=== PATIENT | female | born 1990 | race African-American/Black ===

== ENCOUNTER 2016-10-30 16:14 | Emergency (ER) | payer OTHER ==
[~2016-10-30] VITALS: Ht 165.1 cm; Wt 87.3 kg
[2016-10-30 16:18] VITALS: BP 147/90; PULSE 64; RESP 18; TEMP 98.4; O2SAT 100
[2016-10-30] MEDS ORDERED: PRIL20CA9 PO (17:00)
--- NOTE | 2016-10-30 17:01 | PD ---
HPI Chief Complaint: Epigastric Pain Time Seen by Provider: 16:41 Travel History International Travel<30 days: No Contact w/Intl Traveler<30days: No Traveled to known affect area: No History of Present Illness HPI This 26-year-old female says that for the past week and a half years having stomach bloating. She gets some epigastric burning which radiates up towards her chest. She is on no medication. She has not noted any particular about food that makes the pain worse. She takes ibuprofen occasionally. She does not think but she is not sure. She has no history of ulcer disease. She has not had any abdominal surgery pain didn't seem to be worse when she was lying on her side the other day PFS Past Medical History Reproductive: Yes (PCOS) Influenza Vaccination: No ?: Unknown LMP: 09/30/16 Social History Alcohol Use: Yes (OCCAS) Tobacco Use: No Substance Use: No Allergies-Medications (Allergen,Severity, Reaction): Coded Allergies: No Known Allergies (Unverified , 10/30/16) Reported Meds & Prescriptions Reported Meds & Active Scripts Active No Active Prescriptions or Reported Medications Review of Systems General / Constitutional: No: Fever, Chills Eyes: No: Diploplia, Blurred Vision HENT: No: Headaches, Vertigo Cardiovascular: No: Chest Pain or Discomfort, Palpitations Respiratory: No: Cough, Shortness of Breath Gastrointestinal: No: Vomiting, Diarrhea Genitourinary: No: Urgency, Frequency Musculoskeletal: No: Myalgias, Arthralgias Skin: No Itching Neurologic: No: Focal Abnormalities Hematologic/Lymphatic: No: Easy Bruising Physical Exam Narrative GENERAL: Well-developed female SKIN: Warm and dry. HEAD: Atraumatic. Normocephalic. EYES: Pupils equal and round. No scleral icterus. No injection or drainage. ENT: No nasal bleeding or discharge. Mucous membranes pink and moist. NECK: Trachea midline. No JVD. CARDIOVASCULAR: Regular rate and rhythm. No murmur appreciated. RESPIRATORY: No accessory muscle use. Clear to auscultation. Breath sounds equal bilaterally. GASTROINTESTINAL: Abdomen soft, there is some mild epigastric tenderness without guarding or rigidity, nondistended. Hepatic and splenic margins not palpable. MUSCULOSKELETAL: No obvious deformities. No clubbing. No cyanosis. No edema. NEUROLOGICAL: Awake and alert. No obvious cranial nerve deficits. Motor grossly within normal limits. Normal speech. PSYCHIATRIC: Appropriate mood and affect; insight and judgment normal. Data Data Last Documented VS Vital Signs Date Time Temp Pulse Resp B/P Pulse Ox O2 Delivery O2 Flow Rate FiO2 10/30/16 16:18 98.4 64 18 147/90 100 Orders Ed Urine Pregnancytest Poc (10/30/16 16:49) MDM Medical Decision Making Medical Screen Exam Complete: Yes Emergency Medical Condition: Yes Medical Record Reviewed: Yes Differential Diagnosis Differential includes GERD, hiatal hernia, gastritis, cholelithiasis Narrative Course Exam is fairly benign. There is not a pattern to the pain is in the expected cholelithiasis. test will be checked. I think she needs to be on a proton pump inhibitor will also recommend that she not take ibuprofen Diagnosis Primary Impression: GERD (gastroesophageal reflux disease) Qualified Code: K21.9 - Gastroesophageal reflux disease, esophagitis presence not specified Additional Instructions: dont take any ibuprofen or other non steroidal inflammatory medication Scripts Omeprazole (Prilosec)20 Mg Cap20 Mg PO DAILY #30 CAP Ref 0 Prov:Catracho Adkins MD 10/30/16 Disposition: 01 DISCHARGE HOME Condition: Stable Catracho Adkins MD Oct 30, 2016 17:01
--- NOTE | 2016-10-31 18:43 | EKG ---
Date Performed: 10/30/2016 Time Performed: 16:29:54 PTAGE: 26 years EKG: Sinus bradycardia Normal ECG except for rate NO PREVIOUS TRACING DOCTOR: Mookie Hoover Interpretating Date/Time 10/31/2016 18:39:09
== END 2016-10-30 17:31 | disposition home or self-care (01) ==
LOC: PHED 16:14
DX: K21.9 Gastro-esophageal reflux disease without esophagitis (principal)
CPT/HCPCS: 84703; 93005; 99283

== ENCOUNTER 2016-11-06 08:52 | Emergency (ER) | payer OTHER ==
[~2016-11-06] VITALS: Ht 165.1 cm; Wt 90.0 kg
[~2016-11-06 08:52] MED LIST: PRIL20CA9 PO
[2016-11-06 08:54] VITALS: BP 157/101; PULSE 79; RESP 17; TEMP 98; O2SAT 97
--- NOTE | 2016-11-06 09:21 | PD ---
HPI Chief Complaint: Abdominal Pain Time Seen by Provider: 09:12 Travel History International Travel<30 days: No Contact w/Intl Traveler<30days: No Traveled to known affect area: No History of Present Illness HPI 26-year-old female here with complaint of abdominal pressure. Patient states that she has epigastric discomfort/fullness that radiates up into the chest. Increased belching. Patient seen in our emergency department approximate 2 weeks ago with symptoms similar to this. Diagnosed with GERD and given perception for Prilosec. Patient states that she has not been taking this, instead using baking soda and other "homeopathic remedies". Her symptoms have not improved. She notes that the symptoms are worse approximately 10-15 minutes after eating and more so early in the morning. She denies any true abdominal pain. Patient states that she wanted to "get checked out again" because her father just had a ruptured appendicitis and patient is concerned she may have same. PFSH Past Medical History Reproductive: Yes (PCOS) ?: Not LMP: 09/21/16 Social History Alcohol Use: Yes (OCCAS) Tobacco Use: No Substance Use: No Allergies-Medications (Allergen,Severity, Reaction): Coded Allergies: No Known Allergies (Unverified , 11/06/16) Reported Meds & Prescriptions Reported Meds & Active Scripts Active Prilosec (Omeprazole) 20 Mg Cap 20 Mg PO DAILY Review of Systems Except as stated in HPI: all other systems reviewed are Neg Physical Exam Narrative GENERAL: Well-appearing female in no acute distress SKIN: Warm and dry. HEAD: Normocephalic. EYES: No scleral icterus. No injection or drainage. ENT: No nasal bleeding or discharge. Mucous membranes pink and moist. NECK: Supple CARDIOVASCULAR: Regular rate and rhythm. RESPIRATORY: No accessory muscle use GASTROINTESTINAL: Abdomen soft, non-tender, nondistended. MUSCULOSKELETAL: Normal gait NEUROLOGICAL: Awake and alert. Normal speech. PSYCHIATRIC: Appropriate mood and affect; insight and judgment normal. Data Data Last Documented VS Vital Signs Date Time Temp Pulse Resp B/P Pulse Ox O2 Delivery O2 Flow Rate FiO2 11/06/16 09:46 68 18 135/93 99 11/06/16 08:54 98.0 MDM Medical Decision Making Medical Screen Exam Complete: Yes Emergency Medical Condition: Yes Medical Record Reviewed: Yes Differential Diagnosis 26-year-old female with complaint of epigastric discomfort radiating up into the chest with increased belching, worse after food and are not early hours of the morning. Symptoms and exam are benign and classic for gastroesophageal reflux disease. Differential includes gastritis and less likely pancreatitis, hepatobiliary pathology. My suspicion for appendicitis is exceedingly low and patient does not warrant workup for this. Narrative Course Reassured and encouraged to take the Prilosec previously prescribed to her. She has this prescription. Patient encouraged to use [id number] antacids in the meantime while the Prilosec becomes effective/therapeutic. Diagnosis Primary Impression: GERD (gastroesophageal reflux disease) Qualified Code: K21.9 - Gastroesophageal reflux disease without esophagitis Referrals: Primary Care Physician call for appointment Call to establish care Patient Instructions: Diet for Stomach Ulcers and Gastritis (ED), Esophageal Spasm (GEN), General Instructions Additional Instructions: Take Prilosec as prescribed. Antacid 18-20 minutes prior to eating as discussed. Follow-up with primary care provider symptoms persist. Med/Other Pt SpecificInfo: No Change to Meds Disposition: 01 DISCHARGE HOME Condition: Stable Karey Oseguera MD Nov 06, 2016 09:21
[2016-11-06 09:46] VITALS: BP 135/93
== END 2016-11-06 09:48 | disposition home or self-care (01) ==
LOC: NEPE 08:52
DX: K21.9 Gastro-esophageal reflux disease without esophagitis (principal)
CPT/HCPCS: 99283